=== PATIENT | female | born 2000 | race Two or more races ===

== ENCOUNTER 2020-10-25 19:59 | Emergency (ER) | payer OTHER ==
[~2020-10-25] VITALS: Ht 165.1 cm; Wt 61.2 kg
[2020-10-25] MEDS ORDERED: MACRODANTIN100 M1 PO (21:38)
== END 2020-10-25 22:25 | disposition home or self-care (01) ==
LOC: ER 19:59
DX: O26.891 Other specified pregnancy related conditions, first trimester (principal); R10.2 Pelvic and perineal pain; Z34.01 Encounter for supervision of normal first pregnancy, first trimester

== ENCOUNTER 2023-03-05 12:54 | Emergency (ER) | payer OTHER ==
[~2023-03-05] VITALS: Ht 162.6 cm; Wt 61.2 kg
[~2023-03-05 12:54] MED LIST: CEFUROXIME500 MG PO; INDOMETHACIN50 MG PO; IRON325 MG PO; MACRODANTIN100 M1 PO; NIFEDIPINE20 MG PO; TERBUTALINE SU2.5 MG
== END 2023-03-05 14:14 | disposition home or self-care (01) ==
LOC: ER 12:54
DX: R11.0 Nausea (principal); Z88.8 Allergy status to other drugs, medicaments and biological substances
CPT/HCPCS: 96372; 99284; J2765

== ENCOUNTER 2024-01-01 03:55 | Inpatient (IN) | payer OTHER ==
[~2024-01-01] VITALS: Ht 152.4 cm; Wt 2.7 kg
[2024-01-01 04:27] VITALS: BP 100/67
[2024-01-01 06:32] VITALS: BP 91/59; O2SAT 97
[2024-01-01] MEDS ORDERED: PRENATAL TABLE1 EAC1 PO (06:33)
[2024-01-01] MEDS ORDERED: INTEGRA PLUS C1 EACH PO (06:34)
[2024-01-01] MEDS ORDERED: CEFAZOLIN SODIUM 1,000 MG VIAL IV SCH ×2 (06:45→14:00)
[2024-01-01] MEDS ORDERED: CITRIC ACID/SODIUM CITRATE 30 ML BLIST.PACK PO NR (09:01)
[2024-01-01] MEDS ORDERED: ERYTHROMYCIN BASE 1 GM TUBE OP ONE (10:14)
[2024-01-01] MEDS ORDERED: OXYTOCIN 10 UNITS/ML VIAL ONE (10:15)
[2024-01-01] MEDS ORDERED: CARBOPROST TROMETHAMINE 250 MCG/ML AMPUL IM ONE ×2 (10:16→16:30)
[2024-01-01] MEDS ORDERED: MEPERIDINE HCL/PF 50 MG/ML VIAL IM SCH (11:45)
[2024-01-01] MEDS ORDERED: MORPHINE SULFATE 4 MG/ML VIAL IV ONE ×2 (12:25→13:55)
[2024-01-01] MEDS ORDERED: PROMETHAZINE HCL 25 MG/ML AMPUL IJ SCH (14:00)
[2024-01-01 15:30] VITALS: BP 127/82
[2024-01-01 15:45] VITALS: BP 127/82; O2SAT 99
[2024-01-01] MEDS ORDERED: ERYTHROMYCIN BASE OPHT 1GM EACH TUBE OP ONE (16:30)
[2024-01-01] MEDS ORDERED: OXYTOCIN 10 UNITS/ML VIAL IV ONE (16:30)
[2024-01-02 02:53] VITALS: BP 128/88
[2024-01-02 07:53] LABS: HEMATOCRIT 38.1 % (36.0-45.00); HEMOGLOBIN 12.8 g/dL (12.0-15.00); MEAN CELL VOLUME 94.6 fL (80.00-100.00); MEAN CORPUSCULAR HEMOGLOBIN 31.8 pg (27.00-32.0); MEAN CORPUSCULAR HGB CONC 33.6 g/dl (32.0-36.0); PLATELET COUNT 139 K/uL (150-450); RED BLOOD COUNT 4.02 M/uL (4.00-6.00); RED CELL DISTRIBUTION WIDTH 14.4 % (11.5-14.5)
[2024-01-02] MEDS ORDERED: OxyCODONE HCL/APAP UD (PERCOCET) PO PRN (08:15)
[2024-01-02 09:00] VITALS: BP 118/80
[2024-01-02] MEDS ORDERED: MEPERIDINE HCL/PF 50 MG/ML VIAL IM ONE (12:45)
[2024-01-02 16:00] VITALS: BP 112/77
[2024-01-03 10:11] VITALS: BP 110/75
== END 2024-01-03 14:06 | disposition home or self-care (01) | DRG 785 ==
LOC: LDR 03:55 → O/R 12:33 → OB/GYN 13:50
PROVIDERS: ADMIT Specialist; ATTEND Specialist
PROC: 0UB70ZZ Excision of Bilateral Fallopian Tubes, Open Approach (ICD-10-PCS; 2024-01-01)
PROC: 4A1HXCZ Monitoring of Products of Conception, Cardiac Rate, External Approach (ICD-10-PCS; 2024-01-01)
PROC: 10D00Z1 Extraction of Products of Conception, Low, Open Approach (ICD-10-PCS; principal; 2024-01-01 10:00)
DX: O34.211 Maternal care for low transverse scar from previous cesarean delivery (principal); Z30.2 Encounter for sterilization; Z3A.38 38 weeks gestation of pregnancy; Z37.0 Single live birth; Z20.822 Contact with and (suspected) exposure to COVID-19